=== PATIENT | male | born 1985 | race Caucasian/White ===

== ENCOUNTER → 2017-02-05 | Outpatient (CLI) | payer OTHER ==
[~2017-02-05] MED LIST: DIVA500T59 PO; FLUO10CA48 PO; FLUO20CA35 PO; OXYB5TAB74 PO
== END | disposition home or self-care (01) ==
LOC: C.LAB 02:08
DX: Z02.83 Encounter for blood-alcohol and blood-drug test (principal)

== ENCOUNTER → 2017-05-16 | Outpatient (CLI) | payer OTHER ==
[~2017-05-16] MED LIST changes: +ATR25 PO; +DPKSR500 PO; +DTR/5 PO; -OXYB5TAB74 PO; +QUET1TAB37 PO; +SRQ/100 PO
--- NOTE | 2017-05-16 09:17 | DIAGNOSTIC IMAGING REPORT ---
L HIP UNILATERAL 2 VIEWS CLINICAL HISTORY: 31 years-old Male presenting with M54.6 Thoracic back painM25.552 Left hip painM25.50 Polyarthralg. TECHNIQUE: Frontal and frog-leg lateral views of the left hip were obtained. COMPARISON: None. FINDINGS: Hip joint is congruent. No advanced degenerative change. Joint space preserved. No acute fracture or malalignment. No radiographic evidence of soft tissue abnormality. Visualized portion of the pelvis is normal. IMPRESSION: No acute osseous injury of the left hip. Electronically signed by: Lukas Williamson M.D. 05/16/2017 9:16 AM Dictated Date/Time: 05/16/2017 9:15 AM
--- NOTE | 2017-05-16 09:18 | DIAGNOSTIC IMAGING REPORT ---
THORACIC SPINE 3 VIEWS ROUTINE CLINICAL HISTORY: Thoracic back pain. Polyarthralgia. COMPARISON STUDY: No previous studies for comparison. FINDINGS: Alignment of the thoracic spine is anatomic. Vertebral body heights are maintained. There is no fracture or suspicious lesion. Disc spaces are preserved. IMPRESSION: Unremarkable thoracic spine radiographs. Electronically signed by: Gabriel Matos M.D. 05/16/2017 9:16 AM Dictated Date/Time: 05/16/2017 9:16 AM
--- NOTE | 2017-05-16 09:19 | DIAGNOSTIC IMAGING REPORT ---
SI JOINTS 3 OR MORE VIEWS HISTORY: 31 years-old Male M54.6 Thoracic back painM25.552 Left hip painM25.50 Polyarthralg acute back pain COMPARISON: Lumbar spine and SI joint radiographs 11/25/2014 TECHNIQUE: 3 views of the SI joints FINDINGS: Sacrum and imaged pelvis appears intact and unremarkable. Bilateral SI joints are within normal limits and demonstrate no fracture, significant degenerative changes or evidence of erosions. Transitional lumbosacral anatomy redemonstrated. IMPRESSION: 1. No acute bony abnormality or evidence of sacroiliitis. 2. Transitional lumbosacral anatomy redemonstrated. The above report was generated using voice recognition software. It may contain grammatical, syntax or spelling errors. Electronically signed by: Fabián Hamilton M.D. 05/16/2017 9:18 AM Dictated Date/Time: 05/16/2017 9:16 AM
[2017-05-16 09:56] LABS: TRANSFERRIN 223 mg/dl (200-360)
[2017-05-21 11:02] LABS: ANA SCREEN TC 249X NEGATIVE (NEGATIVE); ANTI-SS-A <1.0 NEG AI (<1.0 NEG); ANTI-SS-B <1.0 NEG AI (<1.0 NEG); COMPLEMENT C4** TC 44982E 24 MG/DL (16-47)
== END | disposition home or self-care (01) ==
LOC: C.RAD1850 08:36
PROVIDERS: ATTEND Internal Medicine Rheumatology
DX: M25.552 Pain in left hip (principal); M54.6 Pain in thoracic spine

== ENCOUNTER → 2017-05-21 | Outpatient (CLI) | payer OTHER ==
--- NOTE | 2017-05-21 14:36 | DIAGNOSTIC IMAGING REPORT ---
BONE SCAN WHOLE BODY CLINICAL HISTORY: 31 years-old Male presenting with M54.6 Thoracic back painM25.552 Left hip painM25.50 Polyarthralgia. TECHNIQUE: Planar anterior and posterior whole body imaging was performed 3 hours following the intravenous administration of radiotracer. Radiotracer: 26.3 mCi Tc-99m MDP. COMPARISON: Plain radiographs of the thoracic spine, sacroiliac joints, and left hip from 05/16/2017. FINDINGS: Expected excretion of radiotracer into the urinary bladder. Focal radiotracer activity in the region of the right maxilla. Several foci of mild activity associated with costochondral junctions possibly indicating costochondritis. No additional foci of radiotracer activity. Symmetric mild periarticular uptake at the bilateral shoulders. Symmetric and homogenous uptake at the sacroiliac joints. IMPRESSION: 1. Symmetric mild periarticular radiotracer uptake at the bilateral shoulders. If there is clinical concern, consider dedicated radiographs of the shoulders. 2. Focal greater tracer uptake at the right maxilla. This could be related to a tooth or bone lesion. CT of the face could be obtained if clinically indicated. 3. No other evidence of radiotracer uptake to suggest an inflammatory arthritis. Electronically signed by: Lukas Williamson M.D. 05/21/2017 2:34 PM Dictated Date/Time: 05/21/2017 2:30 PM
== END | disposition home or self-care (01) ==
LOC: C.NUCL 10:36
PROVIDERS: ATTEND Internal Medicine Rheumatology
DX: R93.7 Abnormal findings on diagnostic imaging of other parts of musculoskeletal system (principal); M25.552 Pain in left hip; M54.6 Pain in thoracic spine

== ENCOUNTER 2017-07-11 01:51 | Observation (INO) | payer OTHER ==
[~2017-07-11] VITALS: Ht 185.4 cm; Wt 73.6 kg
[~2017-07-11 01:51] MED LIST changes: -ATR25 PO; -DPKSR500 PO; -QUET1TAB37 PO; -SRQ/100 PO
[2017-07-11] MEDS ORDERED: SODIUM CHLORIDE 0.9% 1000ML 2,000 ML IV STA (02:18)
[2017-07-11 02:26] LABS: BASO % 0.2 %; BASO ABS # 0.01 K/uL (0-0.2); EOS % 1.2 %; EOS ABS # 0.05 K/uL (0-0.5); HEMATOCRIT 42.9 % (42-52); HEMOGLOBIN 15.1 g/dL (14.0-18.0); IG# 0.01 K/uL (0.00-0.02); LYMPH % 43.3 %; LYMPH ABS # 1.87 K/uL (1.2-3.4); MEAN CELL VOLUME 86.8 fL (80-100); MEAN CORPUSCULAR HEMOGLOBIN 30.6 pg (25-34); MEAN CORPUSCULAR HGB CONC 35.2 g/dl (32-36); MEAN PLATELET VOLUME 10.6 fL (7.4-10.4); MONO % 6.5 %; MONO ABS # 0.28 K/uL (0.11-0.59); NEUT % 48.6 %; PLATELET COUNT 188 K/uL (130-400); RED CELL DISTRIBUTION WIDTH CV 12.6 % (11.5-14.5); RED CELL DISTRIBUTION WIDTH SD 40.3 fL (36.4-46.3); WHITE BLOOD COUNT 4.32 K/uL (4.8-10.8)
[2017-07-11 02:35] LABS: ALBUMIN 3.9 gm/dl (3.4-5.0); ALT/SGPT 64 U/L (12-78); AST/SGOT 21 U/L (15-37); BLOOD UREA NITROGEN 18 mg/dl (7-18); CALCIUM 8.6 mg/dl (8.5-10.1); CARBON DIOXIDE 27 mmol/L (21-32); CREATININE 0.97 mg/dl (0.60-1.40); GLUCOSE 137 mg/dl (70-99); POTASSIUM 3.6 mmol/L (3.5-5.1); SODIUM 136 mmol/L (136-145)
[2017-07-11 02:40] LABS: ALKALINE PHOSPHATASE 64 U/L (45-117); CKMB < 0.5 ng/ml (0.5-3.6)
[2017-07-11] MEDS ORDERED: QUET1TAB37 PO (03:41)
--- NOTE | 2017-07-11 04:05 | EMERGENCY ROOM VISIT NOTE ---
History Report prepared by Shawanda: Hillary Jessica Under the Supervision of: Dr. Adrianna Bhatia M.D. First contact with patient: 01:59 Chief Complaint: SYNCOPE Stated Complaint: SYNCOPE History of Present Illness The patient is a 31 year old male who presents to the Emergency Room with complaints of an episode of syncope occurring prior to arrival. The patient states that he got out of bed to go to the bathroom and started feeling nauseous. He states that he could feel flushed. He states that he stumbled to the bathroom and urinated. He states that when he came out he passed out. He reports that his mother caught him and lowered him to the floor. He states that his mom told him he looked very pale. The patient states that if he stands the symptoms return and if he lies down he feels better. The patient complains of diarrhea. The patient denies hurting his neck or head, fluttering in his chest before falling, vomiting, ever having a gastric ulcer, and recent use of alcohol. The patient notes a history of bipolar disorder and IBS. Source of History: patient Onset: prior to arrival Position: other (global) Timing: other (episode) Modifying Factors (Worsening): other (standing up) Modifying Factors (Relieving): other (lying down) Associated Symptoms: + diarrhea, No headache, No neck pain, No vomiting Note: The patient denies feeling his heart flutter. Review of Systems See HPI for pertinent positives & negatives. A total of 10 systems reviewed and were otherwise negative. Past Medical & Surgical Medical Problems: (1) Bipolar disorder (2) IBS (irritable bowel syndrome) (3) Orthostasis Family History Patient reports no known family medical history. Social History Smoking Status: Never Smoker Alcohol Use: none Drug Use: marijuana Marital Status: single Housing Status: lives with family Occupation Status: unemployed Current/Historical Medications Scheduled Divalproex Sodium (Divalproex Sodium ER), 500 MG PO DAILY Scheduled PRN Hydroxyzine HCl (Hydroxyzine HCl), 50 MG PO HS PRN for insomnia Allergies Coded Allergies: Sulfa Antibiotics (Verified Allergy, Unknown, UNKNOWN, 07/11/17) Physical Exam Vital Signs Date Time Temp Pulse Resp B/P (MAP) Pulse Ox O2 Delivery O2 Flow Rate FiO2 07/11/17 05:06 113 07/11/17 05:00 102 18 94/62 95 Room Air 07/11/17 04:47 94 18 103/58 97 Room Air 115 94/68 143 86/60 07/11/17 04:00 77 18 105/62 97 Room Air 07/11/17 02:38 91 18 114/65 97 Room Air 07/11/17 02:07 79 18 104/56 99 Room Air 94 95/64 121 07/11/17 01:56 36.8 79 18 109/71 97 Room Air 07/11/17 01:55 82 Physical Exam Positive orthostatic vital signs. General: Somewhat ill-appearing, pale, in no significant distress. HEENT: No scleral icterus, PERRLA, neck supple. Atraumatic. Pale conjunctiva. DMM. Cardiovascular: Regular rate and rhythm, no extra sounds. Pulmonary: Clear to auscultation bilaterally, normal work of breathing. Abdomen: Soft, nontender, nondistended, positive bowel sounds. Rectal: Normal. Normal mucosa. Guaiac negative. Brown stool. Musculoskeletal: Atraumatic, no peripheral edema. Neurologic: Patient awake alert and oriented x 3, full strength in all 4 extremities. Cranial nerves 2 through 12 grossly intact. Skin: Warm, dry, no rash Medical Decision & Procedures ER Provider Diagnostic Interpretation: CHEST X-RAY: The results were interpreted by me. Negative for focal lung consolidation. No failure. Laboratory Results 07/11/17 02:00 Red Blood Count 4.94, Mean Corpuscular Volume 86.8, Mean Corpuscular Hemoglobin 30.6, Mean Corpuscular Hemoglobin Concent 35.2, Mean Platelet Volume 10.6, Neutrophils (%) (Auto) 48.6, Lymphocytes (%) (Auto) 43.3, Monocytes (%) (Auto) 6.5, Eosinophils (%) (Auto) 1.2, Basophils (%) (Auto) 0.2, Neutrophils # (Auto) 2.10, Lymphocytes # (Auto) 1.87, Monocytes # (Auto) 0.28, Eosinophils # (Auto) 0.05, Basophils # (Auto) 0.01 07/11/17 02:00 Test 07/11/17 02:00 07/11/17 02:39 White Blood Count 4.32 K/uL (4.8-10.8) Red Blood Count 4.94 M/uL (4.7-6.1) Hemoglobin 15.1 g/dL (14.0-18.0) Hematocrit 42.9 % (42-52) Mean Corpuscular Volume 86.8 fL (80-100) Mean Corpuscular Hemoglobin 30.6 pg (25-34) Mean Corpuscular Hemoglobin Concent 35.2 g/dl (32-36) Platelet Count 188 K/uL (130-400) Mean Platelet Volume 10.6 fL (7.4-10.4) Neutrophils (%) (Auto) 48.6 % Lymphocytes (%) (Auto) 43.3 % Monocytes (%) (Auto) 6.5 % Eosinophils (%) (Auto) 1.2 % Basophils (%) (Auto) 0.2 % Neutrophils # (Auto) 2.10 K/uL (1.4-6.5) Lymphocytes # (Auto) 1.87 K/uL (1.2-3.4) Monocytes # (Auto) 0.28 K/uL (0.11-0.59) Eosinophils # (Auto) 0.05 K/uL (0-0.5) Basophils # (Auto) 0.01 K/uL (0-0.2) RDW Standard Deviation 40.3 fL (36.4-46.3) RDW Coefficient of Variation 12.6 % (11.5-14.5) Immature Granulocyte % (Auto) 0.2 % Immature Granulocyte # (Auto) 0.01 K/uL (0.00-0.02) D-Dimer 300 ug/L FEU (0-500) Anion Gap 6.0 mmol/L (3-11) Est Creatinine Clear Calc Drug Dose 111.8 ml/min Estimated GFR () 118.4 Estimated GFR (Non- 102.2 BUN/Creatinine Ratio 18.9 (10-20) Calcium Level 8.6 mg/dl (8.5-10.1) Magnesium Level 2.1 mg/dl (1.8-2.4) Total Bilirubin 0.4 mg/dl (0.2-1) Direct Bilirubin 0.2 mg/dl (0-0.2) Aspartate Amino Transf (AST/SGOT) 21 U/L (15-37) Alanine Aminotransferase (ALT/SGPT) 64 U/L (12-78) Alkaline Phosphatase 64 U/L (45-117) Total Creatine Kinase 63 U/L (39-308) Creatine Kinase MB < 0.5 ng/ml (0.5-3.6) Creatine Kinase MB Ratio (0-3.0) Troponin I < 0.015 ng/ml (0-0.045) Total Protein 7.0 gm/dl (6.4-8.2) Albumin 3.9 gm/dl (3.4-5.0) Urine Color YELLOW Urine Appearance CLEAR (CLEAR) Urine pH 6.0 (4.5-7.5) Urine Specific [place] 1.020 (1.000-1.030) Urine Protein NEG (NEG) Urine Glucose (UA) NEG (NEG) Urine Ketones NEG (NEG) Urine Occult Blood NEG (NEG) Urine Nitrite NEG (NEG) Urine Bilirubin NEG (NEG) Urine Urobilinogen NEG (NEG) Urine Leukocyte Esterase NEG (NEG) Urine Opiates Screen NEG (NEG) Urine Methadone, Qualitative NEG (NEG) Urine Barbiturates NEG (NEG) Urine Phencyclidine (PCP) Level NEG (NEG) Ur Amphetamine/Methamphetamine NEG (NEG) MDMA (Ecstasy) Screen NEG (NEG) Urine Benzodiazepines Screen NEG (NEG) Urine Cocaine Metabolite NEG (NEG) Urine Marijuana (THC) NEG (NEG) Laboratory results per my review. Medications Administered Medications (Trade) Dose Ordered Sig/Yuliana Route Start Time Stop Time Status Last Admin Dose Admin Sodium Chloride 2,000 ml @ 999 mls/hr Q2H1M STAT IV 07/11/17 02:18 07/11/17 04:18 DC 07/11/17 02:24 999 MLS/HR ECG Per My Interpretation Indication: syncope Rate (beats per minute): 78 Rhythm: normal sinus Findings: RBBB (incomplete), no acute ischemic change, no ectopy, other (QT-c 458) Change: Patient's electrocardiogram interpreted by me. ED Course 0200: Past medical records reviewed. The patient was evaluated in room A2. A complete history and physical examination was performed. 0218: Ordered NSS 2000 ml @ 999 mls/hr IV. 0454: I reviewed the patient's case with Dr. Marin- [facility] [place] Hospitalist. He will evaluate the patient for further management. Medical Decision Differential diagnosis: Etiologies such as vasovagal event, infection, hypoglycemia, electrolyte abnormalities, cardiac sources, intracerebral event, toxicologic, neurologic, as well as others were entertained. This patient was evaluated and appeared to be in no significant distress. IV access was obtained and laboratory work was drawn. This patient was evaluated and appeared to be in no significant distress. IV access was obtained and laboratory work was drawn. Patient was positive for orthostatic hypotension. He was given 2 L of IV fluid. EKG reveals no significant abnormalities. D-dimer is normal. Troponin is normal. Orthostatics were repeated after the IV hydration. He remains positive although says he is less symptomatic. The etiology of the patient's hypotension is unclear although he has recently increased his Seroquel dose. Given the profound orthostasis, the patient will be evaluated by the hospitalist service for further management. Patient is aware of the plan and agrees. Medication Reconcilliation Current Medication List: was personally reviewed by me Blood Pressure Screening Orthostatic and will be further monitored by the hospitalist. Consults Time Called: 0450 Consulting Physician: Dr. Dorene BANG Hospitalist Returned Call: 0454 I reviewed the patient's case with Dr. Dorene BANG Hospitalist. He will evaluate the patient for further management. Impression Primary Impression: Orthostatic syncope Additional Impression: Medication adverse effect Scribe Attestation The scribe's documentation has been prepared under my direction and personally reviewed by me in its entirety. I confirm that the note above accurately reflects all work, treatment, procedures, and medical decision making performed by me. Departure Information Dispostion Being Evaluated By Hospitalist Prescriptions Hydroxyzine HCl (Hydroxyzine HCl) 25 Mg Tab 50 MG PO HS Y for insomnia for 14 Days, #20 TAB Prov: Danilo Bangura MD, PhD 07/13/17 Divalproex Sodium (Divalproex Sodium ER) 500 Mg Tabcr 500 MG PO DAILY for 30 Days Prov: Danilo Bangura MD, PhD 07/13/17 Referrals Bette Jo D.O. (PCP) Patient Instructions My [facility] Problem Qualifiers
--- NOTE | 2017-07-11 05:39 | History and Physical ---
History & Physical Date & Time of Service: Jul 11, 2017 at 05:18 Chief Complaint: Syncope Primary Care Physician: Bette Jo D.O. History of Present Illness Source: patient 31 y/o M Hx Bipolar disorder. The pt woke up to urinate this AM, became lightheaded and suffered a brief syncopal episode. He presented to the ER as he remained lightheaded and was unable to stand without becoming dizzy and pre- syncopal. He denies CP, palpitations, SOB or fevers. He does describe related nausea. While in the ER the pt received 2 L of IVF. Despite this, when attempting to sit up or stand, he remained clearly orthostatic with persistent symptoms. He notes that he take Seroquel for his Bipolar disorder and that the dose was increased from 100mg daily to 300mg daily. He was previously combining Seroquel with Fluoxetine but had DCd Fluoxetine several months earlier. On review of literature regarding Seroquel side effects, it appears that his symptoms are not unusual and can occur in the absence of toxicity. Regardless, the pt cannot currently stand up without becoming symptomatic and will be assigned to telemetry for additional workup. Past Medical/Surgical History Bipolar disorder - pt reports that prior to an increase in his Seroquel dose he was manic for a total of 67 months. Family History Patient reports no known family medical history. Biological father with history of Hep C, CAD, CHF Social History He does not drink, smoke or take any unprescribed drugs Smoking Status: Never Smoker Drug Use: marijuana Marital Status: single Housing status: lives with family Occupational Status: unemployed Immunizations History of Influenza Vaccine: No History of Tetanus Vaccine?: Yes Tetanus Immunization Date: Apr 09, 2006 History of Pneumococcal: No History of Hepatitis B Vaccine: No Multi-Drug Resistant Organisms History of MDRO: No Allergies Coded Allergies: Sulfa Antibiotics (Verified Allergy, Unknown, UNKNOWN, 07/11/17) Home Medications Scheduled Quetiapine Fumarate (Seroquel), 300 MG PO HS Review of Systems Constitutional: No fever, No chills, No sweats Eyes: No worsening of vision ENT: No hearing loss, No unusual epistaxis, No nasal symptoms Respiratory: No cough, No sputum, No wheezing Cardiovascular: + problem reported (tachycardia), No chest pain, No orthopnea, No PND Abdomen: + nausea, No pain, No vomiting Musculoskeletal: No joint pain Genitourinary - Male: No hematuria Neurologic: + problem reported (Syncope as above), No memory loss, No paralysis , No weakness Psychiatric: No depression symptoms Endocrine: No fatigue Hematologic / Lymphatic: No abnormal bleeding/bruising Integumentary: No rash Allergic / Immunologic: No environmental allergies Physical Exam Vital Signs Date Time Temp Pulse Resp B/P (MAP) Pulse Ox O2 Delivery O2 Flow Rate FiO2 07/11/17 05:06 113 07/11/17 04:47 94 18 103/58 97 Room Air 115 94/68 143 86/60 07/11/17 04:00 77 18 105/62 97 Room Air 07/11/17 02:38 91 18 114/65 97 Room Air 07/11/17 02:07 79 18 104/56 99 Room Air 94 95/64 121 07/11/17 01:56 36.8 79 18 109/71 97 Room Air 07/11/17 01:55 82 General Appearance: WD/WN Head: normocephalic Eyes: normal inspection ENT: normal ENT inspection, pharynx normal Neck: supple, no JVD Respiratory/Chest: chest non-tender, lungs clear, normal breath sounds Cardiovascular: no edema, no gallop, no JVD, no murmur, + tachycardia Abdomen/GI: normal bowel sounds, non tender, soft Back: normal inspection, no CVA tenderness Extremities/Musculoskelatal: normal inspection, no calf tenderness, normal capillary refill 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, no motor/sensory deficits, alert, oriented x 3 Skin: normal color Diagnostics Laboratory Results Results Past 24 Hours Test 07/11/17 02:00 07/11/17 02:39 Range/Units White Blood Count 4.32 4.8-10.8 K/uL Red Blood Count 4.94 4.7-6.1 M/uL Hemoglobin 15.1 14.0-18.0 g/dL Hematocrit 42.9 42-52 % Mean Corpuscular Volume 86.8 80-100 fL Mean Corpuscular Hemoglobin 30.6 25-34 pg Mean Corpuscular Hemoglobin Concent 35.2 32-36 g/dl Platelet Count 188 130-400 K/uL Mean Platelet Volume 10.6 7.4-10.4 fL Neutrophils (%) (Auto) 48.6 % Lymphocytes (%) (Auto) 43.3 % Monocytes (%) (Auto) 6.5 % Eosinophils (%) (Auto) 1.2 % Basophils (%) (Auto) 0.2 % Neutrophils # (Auto) 2.10 1.4-6.5 K/uL Lymphocytes # (Auto) 1.87 1.2-3.4 K/uL Monocytes # (Auto) 0.28 0.11-0.59 K/uL Eosinophils # (Auto) 0.05 0-0.5 K/uL Basophils # (Auto) 0.01 0-0.2 K/uL RDW Standard Deviation 40.3 36.4-46.3 fL RDW Coefficient of Variation 12.6 11.5-14.5 % Immature Granulocyte % (Auto) 0.2 % Immature Granulocyte # (Auto) 0.01 0.00-0.02 K/uL D-Dimer 300 0-500 ug/L FEU Sodium Level 136 136-145 mmol/L Potassium Level 3.6 3.5-5.1 mmol/L Chloride Level 103 98-107 mmol/L Carbon Dioxide Level 27 21-32 mmol/L Anion Gap 6.0 3-11 mmol/L Blood Urea Nitrogen 18 7-18 mg/dl Creatinine 0.97 0.60-1.40 mg/dl Est Creatinine Clear Calc Drug Dose 111.8 ml/min Estimated GFR () 118.4 Estimated GFR (Non- 102.2 BUN/Creatinine Ratio 18.9 10-20 Random Glucose 137 70-99 mg/dl Calcium Level 8.6 8.5-10.1 mg/dl Magnesium Level 2.1 1.8-2.4 mg/dl Total Bilirubin 0.4 0.2-1 mg/dl Direct Bilirubin 0.2 0-0.2 mg/dl Aspartate Amino Transf (AST/SGOT) 21 15-37 U/L Alanine Aminotransferase (ALT/SGPT) 64 12-78 U/L Alkaline Phosphatase 64 45-117 U/L Total Creatine Kinase 63 39-308 U/L Creatine Kinase MB < 0.5 0.5-3.6 ng/ml Creatine Kinase MB Ratio 0-3.0 Troponin I < 0.015 0-0.045 ng/ml Total Protein 7.0 6.4-8.2 gm/dl Albumin 3.9 3.4-5.0 gm/dl Urine Color YELLOW Urine Appearance CLEAR CLEAR Urine pH 6.0 4.5-7.5 Urine Specific [place] 1.020 1.000-1.030 Urine Protein NEG NEG Urine Glucose (UA) NEG NEG Urine Ketones NEG NEG Urine Occult Blood NEG NEG Urine Nitrite NEG NEG Urine Bilirubin NEG NEG Urine Urobilinogen NEG NEG Urine Leukocyte Esterase NEG NEG Urine Opiates Screen NEG NEG Urine Methadone, Qualitative NEG NEG Urine Barbiturates NEG NEG Urine Phencyclidine (PCP) Level NEG NEG Ur Amphetamine/Methamphetamine NEG NEG MDMA (Ecstasy) Screen NEG NEG Urine Benzodiazepines Screen NEG NEG Urine Cocaine Metabolite NEG NEG Urine Marijuana (THC) NEG NEG EKG Sinus tach Impression Assessment and Plan 31 y/o M Hx Bipolar disorder. The pt woke up to urinate this AM, became lightheaded and suffered a brief syncopal episode. He presented to the ER as he remained lightheaded and was unable to stand without becoming dizzy and pre- syncopal. He denies CP, palpitations, SOB or fevers. He does describe related nausea. While in the ER the pt received 2 L of IVF. Despite this, when attempting to sit up or stand, he remained clearly orthostatic with persistent symptoms. He notes that he take Seroquel for his Bipolar disorder and that the dose was increased from 100mg daily to 300mg daily. He was previously combining Seroquel with Fluoxetine but had DCd Fluoxetine several months earlier. On review of literature regarding Seroquel side effects, it appears that his symptoms are not unusual and can occur in the absence of toxicity. Regardless, the pt cannot currently stand up without becoming symptomatic and will be assigned to telemetry for additional workup. 1) Syncope - orthostasis - the most likely etiology is the increase in the pt's Seroquel dose. We have sent for a level, however, this is a send-out and may take a while. We will provide IVF and check his vitals including orthostatics Q6H. If his symptoms resolve, he can likely be DCd. An echo is pending as well. 2) Bipolar disease - Considering the severity of his disorder, the case should likely be referred to mental health if it is determined that Seroquel is the causative agent and a substitution or dose adjustment is required. Full code - we will avoid DVT prophylaxis due to fall/syncope risk - would not apply SCDs until afternoon as I am not sure if they would have an effect on determining orthostatic pressure Total time for this admit including review of labs, meds, imaging, EKG - discussion with pt, family and ER attending - 38 min Level of Care Telemetry Resuscitation Status FULL RESUSCITATION VTE Prophylaxis Given or contraindicated: Treatment not indicated
[2017-07-11] MEDS ORDERED: ALUMINUM/MAGNESIUM/SIMETH (MAALOX MAX) 30 ML UDC PO PRN (05:45)
[2017-07-11] MEDS ORDERED: POLYETHYLENE (MIRALAX) 17 GM PACK PO PRN (05:45)
[2017-07-11] MEDS ORDERED: MAGNESIUM HYDROXIDE SUSP 30 ML UDC PO PRN (05:45)
[2017-07-11] MEDS ORDERED: ACETAMINOPHEN 325 MG TAB PO PRN (05:45)
[2017-07-11] MEDS ORDERED: ONDANSETRON INJ 2 MG/ML 2 ML VIAL IV PRN (05:45)
[2017-07-11] MEDS ORDERED: IV FLUIDS COMPLETED PRN (06:30)
[2017-07-11 07:10] VITALS: BP 111/69; PULSE 83; TEMP 36.6; O2SAT 96; Ht 185.4 cm; Wt 73.6 kg
--- NOTE | 2017-07-11 07:13 | DIAGNOSTIC IMAGING REPORT ---
CHEST ONE VIEW PORTABLE CLINICAL HISTORY: 31 years-old Male presenting with syncope. TECHNIQUE: Portable upright AP view of the chest was obtained. COMPARISON: 04/01/2009. FINDINGS: Cardiomediastinal silhouette normal. Lungs and pleural spaces clear. Osseous structures normal. Upper abdomen normal. IMPRESSION: 1. No acute cardiopulmonary disease. Electronically signed by: Lukas Williamson M.D. 07/11/2017 7:12 AM Dictated Date/Time: 07/11/2017 7:12 AM
--- NOTE | 2017-07-11 07:51 | ECHOCARDIOGRAM REPORT ---
*NOTICE TO RECEIVING REPUBLICAN AGENCY This information is strictly Confidential and protected under [place] law. [place] law prohibits you from making any further disclosure of this information unless further disclosure is expressly permitted by the written consent of the person to whom it pertains or is authorized by law. A general authorization for the release of medical or other information is not sufficient for this purpose. Hospital accepts no responsibility if the information is made available to any other person, INCLUDING THE PATIENT. Interpretation Summary * Name: LIOR POWERS Study Date: 07/11/2017 06:26 AM BP: 94/62 mmHg * Patient Location: [facility] HR: 113 * : 1985 (M/d/yyyy) Gender: Male Height: 72 in * Age: 31 yrs Ethnicity: CA Weight: 160 lb * Ordering Physician: Roby Marin * Referring Physician: Self, Referred * Performed By: Jonathan Oliver RCS * * Reason For Study: Syncope * BSA: 1.9 m2 * -- Conclusions -- * Left ventricular systolic function is normal. * Normal diastolic function * Right ventricular systolic pressure is normal. * Normal study Procedure Details * A complete two-dimensional transthoracic echocardiogram was performed (2D, M-mode, Doppler and color flow Doppler). Left Ventricle * The left ventricle is normal in size. * There is normal left ventricular wall thickness. * Left ventricular systolic function is normal. * Normal diastolic function Right Ventricle * The right ventricle is normal in size and function. * The right ventricular systolic function is normal as assessed by tricuspid annular plane systolic excursion (TAPSE) (normal >1.5 cm). Atria * The left atrial size is normal. * Right atrial size is normal. Mitral Valve * The mitral valve anatomy is normal. * There is no mitral regurgitation noted. Tricuspid Valve * The tricuspid valve anatomy is normal. * There is trace tricuspid regurgitation. * Right ventricular systolic pressure is normal. Aortic Valve * The aortic valve is normal in structure and function. * The aortic valve is trileaflet. * No hemodynamically significant valvular aortic stenosis. * There is no significant aortic regurgitation. Great Vessels * The aortic root is normal size. Pericardium/Pleural * There is no pericardial effusion. Great Vessels * Normal inferior vena cava diameter and respiratory variation suggests normal central venous pressure. MMode 2D Measurements and Calculations IVSd 1.0 cm IVSs 1.2 cm LVIDd 4.9 cm LVIDs 3.2 cm LVPWd 0.94 cm LVPWs 1.4 cm IVS/LVPW 1.1 FS 35.0 % EDV(Teich) 110.6 ml ESV(Teich) 39.7 ml EF(Teich) 64.1 % EDV(cubed) 114.6 ml ESV(cubed) 31.5 ml EF(cubed) 72.5 % % IVS thick 16.2 % % LVPW thick 51.8 % LV mass(C)d 170.5 grams LV mass(C)dI 88.0 grams/m\S\2 LV mass(C)s 135.7 grams LV mass(C)sI 70.0 grams/m\S\2 SV(Teich) 70.8 ml SI(Teich) 36.6 ml/m\S\2 SV(cubed) 83.1 ml SI(cubed) 42.9 ml/m\S\2 Ao root diam 3.6 cm Ao root area 10.3 cm\S\2 ACS 2.1 cm LA dimension 3.2 cm asc Aorta Diam 2.8 cm LA/Ao 0.87 EDV(MOD-sp4) 97.0 ml ESV(MOD-sp4) 41.0 ml EF(MOD-sp4) 57.7 % EDV(MOD-sp2) 121.0 ml ESV(MOD-sp2) 53.0 ml EF(MOD-sp2) 56.2 % SV(MOD-sp4) 56.0 ml SI(MOD-sp4) 28.9 ml/m\S\2 SV(MOD-sp2) 68.0 ml SI(MOD-sp2) 35.1 ml/m\S\2 Doppler Measurements and Calculations MV E max davis 65.1 cm/sec MV A max davis 60.0 cm/sec MV E/A 1.1 MV P1/2t max davis 73.6 cm/sec MV P1/2t 74.4 msec MVA(P1/2t) 3.0 cm\S\2 MV dec slope 289.9 cm/sec\S\2 MV dec time 0.24 sec Ao V2 max 123.5 cm/sec Ao max PG 6.1 mmHg Ao max PG (full) 1.3 mmHg LV V1 max PG 4.8 mmHg LV V1 max 109.6 cm/sec PA V2 max 102.6 cm/sec PA max PG 4.2 mmHg TR max davis 198.5 cm/sec
[2017-07-11] MEDS: NSS + 20MEQ KCL 1000ML 1,000 ML IV SCH ×2 (08:18→15:11)
[2017-07-11] MEDS ORDERED: NURSING VERBAL MED ORDER ONE (10:15)
[2017-07-11 11:57] VITALS: BP 108/65; PULSE 78; TEMP 36.7; O2SAT 99
--- NOTE | 2017-07-11 12:26 | Progress Note ---
Subjective Date of Service: Jul 11, 2017. Subjective Pt evaluation today including: conversation w/ patient, physical exam, chart review, lab review, review of studies, review of inpatient medication list Doing well, no dizziness, no blurry vision, denies palpitation, chest pain or lower extremity swelling, denies any new syncope, Problem List Medical Problems: (1) Medication adverse effect Status: Acute (2) Orthostatic syncope Status: Acute Review of Systems Constitutional: No fever, No chills, No sweats, No weight loss, No weakness, No fatigue, No problem reported Eyes: No worsening of vision, No eye pain, No redness, No discharge, No diplopia ENT: No hearing loss, No unusual epistaxis, No nasal symptoms, No sore throat, No tinnitus, No dental problems, No trouble swallowing Respiratory: No cough, No sputum, No wheezing, No shortness of breath, No dyspnea on exertion, No dyspnea at rest, No hemoptysis Cardiac: No chest pain, No orthopnea, No PND, No edema, No claudication, No palpitations Abdomen: No pain, No nausea, No vomiting, No diarrhea, No constipation Musculoskeletal: No joint pain, No muscle pain, No swelling, No calf pain Male : No dysuria, No urinary frequency, No incontinence, No nocturia more than once/night, No slowing stream, No hematuria Neurologic: No memory loss, No paralysis, No weakness, No numbness/tingling, No vertigo, No balance problems Psychiatric: No depression symptoms, No anhedonism, No anxiety, No insomnia, No substance abuse Heme: No abnormal bleeding/bruising, No clotting problems, No swollen lymph nodes, No night sweats Endo: No fatigue, No excessive thirst, No excessive urination Skin: No rash, No itch, No new/changing skin lesions, No color change, No bleeding Objective Vital Signs Date Time Temp Pulse Resp B/P (MAP) Pulse Ox O2 Delivery O2 Flow Rate FiO2 07/11/17 11:57 36.7 78 18 108/65 (79) 99 Room Air 07/11/17 07:10 36.6 83 16 111/69 96 Room Air 07/11/17 06:00 98 18 105/60 98 Room Air 07/11/17 05:06 113 07/11/17 05:00 102 18 94/62 95 Room Air 07/11/17 04:47 94 18 103/58 97 Room Air 115 94/68 143 86/60 07/11/17 04:00 77 18 105/62 97 Room Air 07/11/17 02:38 91 18 114/65 97 Room Air 07/11/17 02:07 79 18 104/56 99 Room Air 94 95/64 121 07/11/17 01:56 36.8 79 18 109/71 97 Room Air 07/11/17 01:55 82 Physical Exam General Appearance: WD/WN, no apparent distress Eyes: normal inspection, PERRL, EOMI, sclerae normal ENT: normal ENT inspection, hearing grossly normal, pharynx normal Neck: supple, no adenopathy, thyroid normal, no JVD, no carotid bruits, trachea midline Respiratory/Chest: chest non-tender, normal breath sounds, no respiratory distress, no accessory muscle use, + decreased breath sounds Cardiovascular: regular rate, rhythm, no edema, no gallop, no JVD, no murmur Abdomen: normal bowel sounds, non tender, soft, no organomegaly, no pulsatile mass Extremities: normal range of motion, non-tender, normal inspection, no pedal edema, no calf tenderness, normal capillary refill, pelvis stable Neurologic/Psychiatric: lead systems developer II-XII nml as tested, no motor/sensory deficits, alert, normal mood/affect, oriented x 3 Skin: normal color, warm/dry, no rash Lymphatic: no adenopathy Laboratory Results Last 24 Hours Test 07/11/17 02:00 07/11/17 02:39 07/11/17 05:44 White Blood Count 4.32 K/uL Red Blood Count 4.94 M/uL Hemoglobin 15.1 g/dL Hematocrit 42.9 % Mean Corpuscular Volume 86.8 fL Mean Corpuscular Hemoglobin 30.6 pg Mean Corpuscular Hemoglobin Concent 35.2 g/dl Platelet Count 188 K/uL Mean Platelet Volume 10.6 fL Neutrophils (%) (Auto) 48.6 % Lymphocytes (%) (Auto) 43.3 % Monocytes (%) (Auto) 6.5 % Eosinophils (%) (Auto) 1.2 % Basophils (%) (Auto) 0.2 % Neutrophils # (Auto) 2.10 K/uL Lymphocytes # (Auto) 1.87 K/uL Monocytes # (Auto) 0.28 K/uL Eosinophils # (Auto) 0.05 K/uL Basophils # (Auto) 0.01 K/uL RDW Standard Deviation 40.3 fL RDW Coefficient of Variation 12.6 % Immature Granulocyte % (Auto) 0.2 % Immature Granulocyte # (Auto) 0.01 K/uL D-Dimer 300 ug/L FEU Sodium Level 136 mmol/L Potassium Level 3.6 mmol/L Chloride Level 103 mmol/L Carbon Dioxide Level 27 mmol/L Anion Gap 6.0 mmol/L Blood Urea Nitrogen 18 mg/dl Creatinine 0.97 mg/dl Est Creatinine Clear Calc Drug Dose 111.8 ml/min Estimated GFR () 118.4 Estimated GFR (Non- 102.2 BUN/Creatinine Ratio 18.9 Random Glucose 137 mg/dl Calcium Level 8.6 mg/dl Magnesium Level 2.1 mg/dl Total Bilirubin 0.4 mg/dl Direct Bilirubin 0.2 mg/dl Aspartate Amino Transf (AST/SGOT) 21 U/L Alanine Aminotransferase (ALT/SGPT) 64 U/L Alkaline Phosphatase 64 U/L Total Creatine Kinase 63 U/L Creatine Kinase MB < 0.5 ng/ml Creatine Kinase MB Ratio Troponin I < 0.015 ng/ml Total Protein 7.0 gm/dl Albumin 3.9 gm/dl Urine Color YELLOW Urine Appearance CLEAR Urine pH 6.0 Urine Specific [place] 1.020 Urine Protein NEG Urine Glucose (UA) NEG Urine Ketones NEG Urine Occult Blood NEG Urine Nitrite NEG Urine Bilirubin NEG Urine Urobilinogen NEG Urine Leukocyte Esterase NEG Urine Opiates Screen NEG Urine Methadone, Qualitative NEG Urine Barbiturates NEG Urine Phencyclidine (PCP) Level NEG Ur Amphetamine/Methamphetamine NEG MDMA (Ecstasy) Screen NEG Urine Benzodiazepines Screen NEG Urine Cocaine Metabolite NEG Urine Marijuana (THC) NEG Assessment and Plan 31 y/o M Hx Bipolar disorder admitted because of syncope episodes July 11, 2017 Patient was found has dizziness and nausea, was orthostatic positive in the emergency room while in the ER the pt received 2 L of IVF His medicine Seroquel for his Bipolar disorder and that the dose was increased from 100mg daily to 300mg daily by PCP 1 month ago. He also reported some diarrhea, not eating drinking well couple days ago, denied possible dehydration Syncope, with orthostatic hypotension, which could be etiology for the syncope, Hypotension episode associated with tachycardia, possible secondary to Seroquel , which dose have side effect include severe hypotension orthostasis, Seroquel level was sent, a possible start low-dose Seroquel at 100 mg, and the same time request psychiatry consultation, Echo was checked which was unremarkable Continue IV fluid, follow-up orthostatic blood pressure checking Discussed with patient about fall precaution Telemetry monitoring heart is normal sinus rhythm, no arrhythmia Bipolar disease, restart low-dose Seroquel, psychiatry consultation requested Continued [facility] stay due to: multiple IV medications needed Discharge planning: home
--- NOTE | 2017-07-11 13:54 | Psychiatric Consultation ---
Psychiatric Consultation Date of Service: Jul 11, 2017. ID: Patient reviewed with liaison nurse in the presence of Dr. Landaverde. 31-year- old male admitted to the medical floor following a syncopal episode. With review of patient's history, it is questioned if a recent increase in his dosage of Seroquel may be the cause for his orthostatic hypotension. Psychiatric consult requested to review for bipolar disorder and potential adjustment of Seroquel dosing. Pt's dose of Seroquel has been decreased to 100mg per patient's medical team. CC: "I was just stumbling around" HPI: Elieser Briscoe is a 31-year-old male seen on psychiatric consult service as it is believed a recent increase in his dose of Seroquel is the cause for his syncopal episode. Pt is evaluated with his mother and sister present, with patient's verbal permission. Pt states that he has been noticing mild symptoms of orthostasis for the past few weeks, but nothing to this extent. He reports getting up to use the restroom overnight, and "stumbling around the bathroom until I passed out in my mom's arms." His mother states that his dose of Seroquel was changed 1-2 months ago, and the patient was instructed to take 200mg for 1 week and then increase to 300mg. She believes this was in response to manic symptoms at the time of presentation. The patient does not recall these instructions, but the mother verifies that he followed the titration as recommended. Pt states his mood is currently "on the low side" and admits to Seroquel being his only psychiatric medication at this time. Past medications include: Prozac, Celexa, Depakote, He reports his last inpatient hospitalization was at [facility] in 2010. He denies SI/HI, A/V hallucinations, and other psychosis. ROS: Psych: denies symptoms other than stated above Constitutional: denied Cardiovascular: denied GI: denied Neurologic: denied Remainder of 10 body systems also reviewed and denied other than noted above. MSE: The patient presented as alert and cooperative. The patient was dressed in a hospital gown and well-groomed. Eye contact was good. No psychomotor restlessness or agitation was noted. Speech was normal in rate, rhythm, and volume. Affect was mood congruent. The patients mood appeared euthymic, though he states, "I'm on the low side". Thought processes were clear, coherent and goal directed without evidence of loose associations or flight of ideas. Thought content/perception was reality based without delusions. The patient denied suicidal and homicidal ideation. The patient denied hallucinations and did not appear to be responding to internal stimuli. Cognition was grossly intact with orientation to person, place and time. Fund of Knowledge/Intelligence were consistent with level of education. Insight and Judgement were fair. Imp: 31-year-old male patient with history of bipolar disorder, currently on Seroquel as monotherapy. Pt reports dose increase from 100mg to 300mg, with recommended 1 week titration at 200mg, which they believe he completed as instructed. It is possible that the patient's current presentation is a result of this dose change, especially if other etiologies have been excluded. It is unlikely to be beneficial to increase dosage at this time due to syncopal episode, and starting a new medication is not recommended given side effects from his current medication may have precipitated the event leading to his hospitalization. It is appropriate to have him remain on the 100mg dose, if tolerating well, until he can be seen by an outpatient provider. Will have psychiatric nurse liaison make referrals for outpatient psychiatrist to follow up on medications, allowing his body time to recovery from this event. This plan was discussed with the patient as well as his family members, who all verbalized understanding and agreement. At this time, the patient does not meet criteria for inpatient mental health treatment, and is appropriate to be managed on an outpatient basis. Plan: - Continue Seroquel 100mg qHS. - Referral to [facility] is in process, patient is familiar with providers there and is agreeable to referral. - Will continue to offer input as requested - Appreciate the opportunity to participate in the care of this patient. Dr. Landaverde has personally been involved in the review of the above case and development of recommendations.
[2017-07-11 16:51] VITALS: BP 121/77; PULSE 80; TEMP 37; O2SAT 98
[2017-07-11 19:29] VITALS: BP 111/74; PULSE 82; TEMP 36.8; O2SAT 97
[2017-07-11] MEDS: QUETIAPINE FUMARATE 100 MG TAB PO SCH (20:37)
[2017-07-11 23:40] VITALS: BP 128/76; PULSE 85; TEMP 36.3; O2SAT 98
[2017-07-12] VITALS (10 sets, daily range): BP systolic 99–137; BP diastolic 51–93; PULSE 66–103; TEMP 36.2–36.9; O2SAT 97–100
[2017-07-12] MEDS ORDERED: SRQ/100 PO (10:39)
--- NOTE | 2017-07-12 10:48 | Discharge Instructions ---
Discharge Instructions Date of Service Jul 12, 2017. Admission Reason for Admission: Bipolar Disorder, Orthostasis Discharge Discharge Diagnosis / Problem: syncope Discharge Goals Goal(s): Decrease discomfort, Improve function, Increase independence, Improve disease control, Improve nutritional status, Learn about illness, Diagnostic testing, Therapeutic intervention, Prevent Disease Progression, Specific goals Activity Recommendations Activity Limitations: as noted below Lifting Limitations: none Exercise/Sports Limitations: until after follow-up appointment . Instructions / Follow-Up Instructions / Follow-Up abimael was having syncope and orthostatic hypotension, which is resolved, possible from Seroquel , currently Seroquel is at 100m po daily, you can remain on the 100mg dose, please keep appoint with [facility], RX has sent to your pharmacy please see pcp in 1 week to follow up with syncope, and TSH level pay attention to dizziness, or syncope when you change positions, fall precaution, no driving or heavy machine operation before clearance by pcp - you need to follow up with your primary care physician in 1 week, - take medication as instructed, never overdose or any misuse, or take with alcohol, because misuse of medicine may cause organ damage or , call your primary care physician if have questions of medicaitons. - call your primary care physician OR go to local emergency room if has any fever/chill, chest pain, shortness of breathing, nausea/vomiting/abdominal pain , facial droop/slurry speech/local weakness, or if has any questions. - fall precaution - diet as instructed - you need to follow up with your subspecialist - you should understand that it is important to follow up the above instruction , and "not following the above instruction" may cause delayed or missed care of your medical conditions which may cause permanent organ damage and even . Current Hospital Diet Patient's current hospital diet: Regular Diet Discharge Diet Recommended Diet: Regular Diet Pending Studies Studies pending at discharge: yes List of pending studies: tsh Laboratory Results Meds Administered (Past 24Hrs) Medications (Trade) Dose Ordered Sig/Yuliana Route Start Time Stop Time Status Last Admin Dose Admin Sodium Chloride 2,000 ml @ 999 mls/hr Q2H1M STAT IV 07/11/17 02:18 07/11/17 04:18 DC 07/11/17 02:24 999 MLS/HR Potassium Chloride/Sodium Chloride 1,000 ml @ 150 mls/hr Q6H40M IV 07/11/17 08:00 07/11/17 21:19 DC 07/11/17 15:11 150 MLS/HR Quetiapine Fumarate (seroQUEL TAB) 100 mg HS PO 07/11/17 21:00 08/10/17 20:59 07/11/17 20:37 100 MG Medical Emergencies . Who to Call and When: Medical Emergencies: If at any time you feel your situation is an emergency, please call 911 immediately. . Non-Emergent Contact Non-Emergency issues call your: Primary Care Provider, Specialist (psych) . . "Provider Documentation" section prepared by Danilo Bangura. . VTE Core Measure Inpt VTE Proph given/why not?: Treatment not indicated
--- NOTE | 2017-07-12 10:57 | Discharge Summary ---
Discharge Summary Date of Service Jul 12, 2017. Discharge Summary Admission Date: Jul 11, 2017 at 05:42 Discharge Date: Jul 12, 2017 Discharge Disposition: Home Principal Diagnosis: syncope and orthostatic hypotension, Problems/Secondary Diagnoses: Bipolar Immunizations: Have You Had Influenza Vaccine: No History of Tetanus Vaccine?: Yes Tetanus Immunization Date: Apr 09, 2006 History of Pneumococcal: No History of Hepatitis B Vaccine: No Procedures: No Consultations: Psychiatrist Medication Reconciliation New Medications: Quetiapine Fumarate (Seroquel) 100 Mg Tab 100 MG PO HS for 30 Days, #30 TAB Discontinued Medications: Quetiapine Fumarate (Seroquel) 300 Mg Tab 300 MG PO HS, TAB Discharge Exam Doing well, up and walk, no dizziness no palpitations, denies chest pain, not have any other complaint Review of Systems: Constitutional: No fever, No chills, No sweats, No weight loss, No weakness , No fatigue, No problem reported Eyes: No worsening of vision, No eye pain, No redness, No discharge, No diplopia, No problem reported ENT: No hearing loss, No unusual epistaxis, No nasal symptoms, No sore throat, No tinnitus, No dental problems, No trouble swallowing, No problem reported Respiratory: No cough, No sputum, No wheezing, No shortness of breath, No dyspnea on exertion, No dyspnea at rest, No hemoptysis, No problem reported Cardiovascular: No chest pain, No orthopnea, No PND, No edema, No claudication, No palpitations, No problem reported Abdomen: No pain, No nausea, No vomiting, No diarrhea, No constipation, No GI bleeding, No problem reported Musculoskeletal: No joint pain, No muscle pain, No swelling, No calf pain, No problem reported Genitourinary - Male: No hematuria, No dysuria, No urinary frequency, No urinary urgency, No urinary hesitancy, No urinary retention, No urinary incontinence, No penile discharge, No lesions, No impotence, No problem reported Neurologic: No memory loss, No paralysis, No weakness, No numbness/tingling , No vertigo, No balance problems, No problem reported Psychiatric: No depression symptoms, No anhedonism, No anxiety, No insomnia , No substance abuse, No problem reported Endocrine: No fatigue, No excessive thirst, No excessive urination, No problem reported Hematologic / Lymphatic: No abnormal bleeding/bruising, No clotting problems , No swollen lymph nodes, No night sweats, No problem reported Integumentary: No rash, No itch, No new/changing skin lesions, No color change, No bleeding, No problem reported Physical Exam: General Appearance: WD/WN, no apparent distress Eyes: normal inspection, PERRL, EOMI ENT: normal ENT inspection, hearing grossly normal, TMs normal Neck: supple, no adenopathy, thyroid normal Respiratory/Chest: chest non-tender, lungs clear, normal breath sounds, no respiratory distress Cardiovascular: regular rate, rhythm, no edema, no gallop Abdomen / GI: normal bowel sounds, non tender, soft, no organomegaly, no pulsatile mass Extremities: normal inspection, no calf tenderness, normal capillary refill , no pedal edema Neurologic/Psychiatric: center rep II-XII nml as tested, no motor/sensory deficits , alert, normal mood/affect, normal reflexes, oriented x 3 Skin: normal color, warm/dry, no rash Hospital Course 31 y/o M Hx Bipolar disorder admitted because of syncope episodes July 11, 2017 Patient was found has dizziness and nausea, was orthostatic positive in the emergency room while in the ER the pt received 2 L of IVF His medicine Seroquel for his Bipolar disorder and that the dose was increased from 100mg daily to 300mg daily by PCP 1 month ago. He also reported some diarrhea, not eating drinking well couple days ago, denied possible dehydration Syncope, with orthostatic hypotension, which could be etiology for the syncope, Hypotension episode associated with tachycardia, possible secondary to Seroquel , which dose have side effect include severe hypotension orthostasis, Seroquel level was sent, a possible start low-dose Seroquel at 100 mg, and the same time request psychiatry consultation, Echo was checked which was unremarkable Has been on IV fluid, encourage oral fluid intake, follow-up orthostatic blood pressure checking, which has been negative, occasional heart rate up to 110 to 120 Discussed with patient about fall precaution, and slowly change positions Telemetry monitoring heart is normal sinus rhythm, no arrhythmia Bipolar disease, restart low-dose Seroquel, psychiatry consultation requested, will maintain the current dose, has follow-up appointment with outpatient psychiatrist, encourage patient to keep the appointment TSH was checked no final result yet, advised patient to follow-up with PCP for the syncope episodes and TSH results Patient discharged home in stable condition, answered all questions Instructions / Follow-Up you was having syncope and orthostatic hypotension, which is resolved, possible from Seroquel , currently Seroquel is at 100m po daily, you can remain on the 100mg dose, please keep appoint with [facility], RX has sent to your pharmacy please see pcp in 1 week to follow up with syncope, and TSH level pay attention to dizziness, or syncope when you change positions, fall precaution, no driving or heavy machine operation before clearance by pcp - you need to follow up with your primary care physician in 1 week, - take medication as instructed, never overdose or any misuse, or take with alcohol, because misuse of medicine may cause organ damage or , call your primary care physician if have questions of medicaitons. - call your primary care physician OR go to local emergency room if has any fever/chill, chest pain, shortness of breathing, nausea/vomiting/abdominal pain , facial droop/slurry speech/local weakness, or if has any questions. - fall precaution - diet as instructed - you need to follow up with your subspecialist - you should understand that it is important to follow up the above instruction , and "not following the above instruction" may cause delayed or missed care of your medical conditions which may cause permanent organ damage and even . Total Time Spent: Less than 30 minutes This includes examination of the patient, discharge planning, medication reconciliation, and communication with other providers. Discharge Instructions Please refer to the electronic Patient Visit Report (Discharge Instructions) for additional information. Additional Copies To Landon Issa MD; Bette Jo D.O.
--- NOTE | 2017-07-12 16:33 | Progress Note ---
Subjective Date of Service: Jul 12, 2017. Subjective Pt evaluation today including: conversation w/ patient, conversation w/ family , physical exam, chart review, lab review, review of studies, review of inpatient medication list Patient was feeling dizziness while up and walk, and there is one time checking of orthostatic blood pressure which was positive, therefore discharge was held, Problem List Medical Problems: (1) Medication adverse effect Status: Acute (2) Orthostatic syncope Status: Acute Review of Systems Constitutional: No fever, No chills, No sweats, No weight loss, No weakness, No fatigue, No problem reported Eyes: No worsening of vision, No eye pain, No redness, No discharge, No diplopia ENT: No hearing loss, No unusual epistaxis, No nasal symptoms, No sore throat, No tinnitus, No dental problems, No trouble swallowing Respiratory: No cough, No sputum, No wheezing, No shortness of breath, No dyspnea on exertion, No dyspnea at rest, No hemoptysis Cardiac: No chest pain, No orthopnea, No PND, No edema, No claudication, No palpitations Abdomen: No pain, No nausea, No vomiting, No diarrhea, No constipation Musculoskeletal: No joint pain, No muscle pain, No swelling, No calf pain Male : No dysuria, No urinary frequency, No incontinence, No nocturia more than once/night, No slowing stream, No hematuria Neurologic: No memory loss, No paralysis, No weakness, No numbness/tingling, No vertigo, No balance problems Psychiatric: No depression symptoms, No anhedonism, No anxiety, No insomnia, No substance abuse Heme: No abnormal bleeding/bruising, No clotting problems, No swollen lymph nodes, No night sweats Endo: No fatigue, No excessive thirst, No excessive urination Skin: No rash, No itch, No new/changing skin lesions, No color change, No bleeding Objective Vital Signs Date Time Temp Pulse Resp B/P (MAP) Pulse Ox O2 Delivery O2 Flow Rate FiO2 07/12/17 14:38 36.2 75 20 98 Room Air 07/12/17 12:17 75 20 121/77 (92) 98 Room Air 125/78 (94) 120/76 (91) 07/12/17 12:00 Room Air 07/12/17 11:20 36.2 66 20 114/69 (84) 99 Room Air 120/78 (92) 114/79 (91) 07/12/17 08:36 36.5 82 20 127/76 (93) 100 Room Air 123/76 (92) 120/69 (86) 07/12/17 08:00 Room Air 07/12/17 07:34 36.9 81 20 99/64 (76) 99 Room Air 07/12/17 04:00 Room Air 07/12/17 03:40 36.6 93 18 127/76 (93) 98 Room Air 95 135/87 (103) 103 118/85 (96) 07/12/17 00:00 Room Air 07/11/17 23:40 36.3 85 18 128/76 (93) 98 Room Air 07/11/17 20:00 Room Air 07/11/17 19:29 36.8 82 20 111/74 (86) 97 Room Air 07/11/17 16:51 37.0 80 18 121/77 (92) 98 Room Air Physical Exam General Appearance: WD/WN, no apparent distress, + thin Eyes: normal inspection, PERRL, EOMI, sclerae normal ENT: normal ENT inspection, hearing grossly normal, pharynx normal Neck: supple, no adenopathy, thyroid normal, no JVD, no carotid bruits, trachea midline Respiratory/Chest: chest non-tender, lungs clear, normal breath sounds, no respiratory distress, no accessory muscle use Cardiovascular: regular rate, rhythm, no edema, no gallop, no JVD, no murmur Abdomen: normal bowel sounds, non tender, soft, no organomegaly, no pulsatile mass Extremities: normal range of motion, non-tender, normal inspection, no pedal edema, no calf tenderness, normal capillary refill, pelvis stable Neurologic/Psychiatric: lav crewman II-XII nml as tested, no motor/sensory deficits, alert, normal mood/affect, oriented x 3 Skin: normal color, warm/dry, no rash Lymphatic: no adenopathy Laboratory Results Last 24 Hours Test 07/12/17 10:08 07/12/17 11:03 Thyroid Stimulating Hormone (TSH) 1.850 uIu/ml Bedside Glucose 89 mg/dl Assessment and Plan 31 y/o M Hx Bipolar disorder admitted because of syncope episodes July 11, 2017 Patient was found has dizziness and nausea, was orthostatic positive in the emergency room while in the ER the pt received 2 L of IVF His medicine Seroquel for his Bipolar disorder and that the dose was increased from 100mg daily to 300mg daily by PCP 1 month ago. He also reported some diarrhea, not eating drinking well couple days ago, denied possible dehydration Syncope, with orthostatic hypotension, which could be etiology for the syncope, Hypotension episode associated with tachycardia, possible secondary to Seroquel , which dose have side effect include severe hypotension orthostasis, Seroquel level was sent, a possible start low-dose Seroquel at 100 mg, and the same time request psychiatry consultation, Echo was checked which was unremarkable Has been on IV fluid, encourage oral fluid intake, follow-up orthostatic blood pressure checking, which has been negative, occasional heart rate up to 110 to 120 Discussed with patient about fall precaution, and slowly change positions Telemetry monitoring heart is normal sinus rhythm, no arrhythmia Bipolar disease, restart low-dose Seroquel, psychiatry consultation requested, will maintain the current dose, has follow-up appointment with outpatient psychiatrist, encourage patient to keep the appointment TSH was checked no final result yet, advised patient to follow-up with PCP for the syncope episodes and TSH results Patient discharged home in stable condition, answered all questions Was planning to discharge patient home this morning however patient was feeling dizziness while up and walk , and there is one time checking of orthostatic blood pressure which was positive at noon time, therefore discharge was held, compression stocking was started, encourage patient to get plenty fluid intake, stop Seroquel Continue security monitor, the medication he was taking in the past include: Prozac, Celexa, Depakote, we will not order any medicine for now, possible he home without any medication tomorrow if no more symptoms or orthostatic blood pressure is improved Continued [facility] stay due to: multiple IV medications needed Discharge planning: home
[2017-07-12] MEDS: QUETIAPINE FUMARATE 100 MG TAB PO SCH (20:18)
[2017-07-13 01:06] VITALS: BP_SYST 109; BP_SYST 113; BP_SYST 120; BP_DIAS 75; BP_DIAS 78; BP_DIAS 82; PULSE 99; TEMP 36.7; O2SAT 98
[2017-07-13 03:40] VITALS: BP_SYST 121; BP_SYST 123; BP_DIAS 73; BP_DIAS 78; BP_DIAS 86; PULSE 120; TEMP 36.8; O2SAT 100
[2017-07-13 07:25] VITALS: BP_SYST 101; BP_SYST 111; BP_SYST 117; BP_DIAS 69; BP_DIAS 73; BP_DIAS 78; PULSE 113; PULSE 66; PULSE 99; TEMP 36.8; O2SAT 98
--- NOTE | 2017-07-13 09:41 | Cardiology Consultation ---
Cardiology Consultation Date of Consultation: Jul 13, 2017. Requesting Physician: Dr. Bangura Reason for Consultation: Orthostasis, syncope Pt evaluation today including: conversation w/ patient, physical exam, lab review, review of studies, review of inpatient medication list History of Present Illness This is a very pleasant 31-year-old gentleman who has a history of bipolar disorder, he has been on an increased dose of Seroquel (300 mg) for several months and was having a manic phase recently. He was apparently awoken from a deep sleep by his sister, not sure exactly why, and when he tried to get up he had difficulty standing due to lightheadedness and a feeling of "sick". I am not sure exactly what he means by sick, he says it was not exactly nausea although nausea may have been part of it, in general he felt very poorly. He tried to go to the bathroom but was not able to do so because when he did stand up. Become presyncopal, ultimately he had a syncopal episode which I believe was brief. He apparently had a syncopal episode in his mother's arms. There have been no recent changes in his medications other than the Seroquel, he uses marijuana when he is in a manic phase and he had done that but denies use of any other street drugs. During his hospitalization he was observed to have significant hypotension shortly after admission (orthostatic signs done on arrival in the emergency room showed that his blood pressure dropped from 104/56 supine to 95/64 sitting , I do not see a standing blood pressure. His heart rate increased from 79 supine to 121 standing consistent with orthostatic hypotension. Another set of orthostatic signs was done several hours later, on this occasion his blood pressure dropped from 103/58 supine to 86/60 standing, his heart rate increased from 94 supine to 143 standing. This is all consistent with orthostatic hypotension. His Seroquel dose was reduced to 100 mg (although it is now on hold but he received it yesterday) daily and more recently orthostatic signs have been better. His blood pressures have not dropped appreciably between supine and standing, however heart rates have not been recorded. Past Medical/Surgical History (1) Bipolar disorder (2) IBS (irritable bowel syndrome) Family History Patient reports no known family medical history. Social History Smoking Status: Never Smoker History of Alcohol Use: No Review of Systems Constitutional: No fever, No weight loss, No weakness Respiratory: No cough, No sputum, No wheezing, No shortness of breath, No dyspnea on exertion, No dyspnea at rest, No hemoptysis Cardiac: + see HPI, + problem reported (Orthostatic symptoms and syncope), No chest pain, No orthopnea, No PND, No edema, No claudication, No palpitations Abdomen: No pain, No nausea, No vomiting, No diarrhea, No GI bleeding Male : No urinary frequency, No nocturia more than once/night, No slowing stream, No sexual dysfunction Neurologic: No paralysis, No weakness, No numbness/tingling, No balance problems Heme: No abnormal bleeding/bruising, No clotting problems Endo: No fatigue Skin: No problem reported All Other Systems: Reviewed and Negative Allergies Coded Allergies: Sulfa Antibiotics (Verified Allergy, Unknown, UNKNOWN, 07/11/17) Medications Current Inpatient Medications Medications (Trade) Dose Ordered Sig/Yuliana Route Start Time Stop Time Status Last Admin Dose Admin Acetaminophen (Tylenol Tab) 650 mg Q4H PRN PO 07/11/17 05:45 08/10/17 05:44 Al Hydrox/Mg Hydrox/Simethicone (Maalox Max Susp) 15 ml Q4H PRN PO 07/11/17 05:45 08/10/17 05:44 Magnesium Hydroxide (Milk Of Magnesia Susp) 30 ml Q12H PRN PO 07/11/17 05:45 08/10/17 05:44 Ondansetron HCl (Zofran Inj) 4 mg Q6H PRN IV 07/11/17 05:45 08/10/17 05:44 07/12/17 10:58 4 MG Polyethylene (Miralax Powder Packet) 17 gm DAILY PRN PO 07/11/17 05:45 08/10/17 05:44 Miscellaneous (Iv Fluids Completed) 1 ea PRN PRN N/A 07/11/17 06:30 07/11/18 06:29 Quetiapine Fumarate (seroQUEL TAB) 100 mg HS PO 07/11/17 21:00 08/10/17 20:59 Future Hold 07/12/17 20:18 100 MG Physical Exam Vital Signs Past 12 Hours Date Time Temp Pulse Resp B/P (MAP) Pulse Ox O2 Delivery O2 Flow Rate FiO2 07/13/17 08:00 Room Air 07/13/17 07:25 36.8 66 20 111/69 (83) 98 117/78 (91) 101/73 (82) 07/13/17 04:00 Room Air 07/13/17 03:40 36.8 120 17 121/73 (89) 100 Room Air 123/86 (98) 121/78 (92) 07/13/17 01:06 36.7 99 17 120/78 (92) 98 Room Air 109/82 (91) 113/75 (88) 07/12/17 23:59 Room Air Constitutional: General Apperance: heathly-appearing Level of Distress: NAD Psychiatric: Mental Status: active & alert Head: normocephalic Eyes: EOM: EOMI ENMT: normal ENT inspection, hearing grossly normal Neck: supple, no masses Lungs: Respiratory effort: no dyspnea, good air movement Auscultation: breath sounds normal, no wheezing Cardiovascular: Heart Auscultation: RRR, no murmurs, no rubs, no gallops Peripheral Pulses: Bruits: none appreciated Abdomen: Bowel Sounds: normal Inspection & Palpation: soft, no tenderness, guarding & rebound, no masses Musculoskeletal: normal strength (5/5 throughout) Extremities: no edema Neurologic: Cranial Nerves: grossly intact Sensation: grossly intact Data Laboratory Results: Last 24 Hours Test 07/12/17 10:08 07/12/17 11:03 Thyroid Stimulating Hormone (TSH) 1.850 uIu/ml Bedside Glucose 89 mg/dl Imaging: Echocardiogram shows normal left ventricular function, it is a normal study EKG: Sinus rhythm, normal ECG Telemetry reviewed: Sinus rhythm and sinus tachycardia Assessment & Plan 1. Syncope: His syncope occurred in conjunction with what sounds like clear orthostatic symptoms and that is by far the most likely cause. There is no evidence of arrhythmias on telemetry monitoring and his cardiac function is normal. Unless it recurs I would not pursue further evaluation at this time. 2. Orthostasis: He has clear orthostatic symptoms prior to admission and documentation of severe orthostasis shortly after admission on Seroquel 300 mg daily. Seroquel 100 mg daily he did not have orthostatic blood pressure changes , heart rates were not recorded. He could have pots on Seroquel (which is a variant of orthostasis) with a compensatory heart rate increase. As long as he feels well that is probably not a problem. If this becomes a problem we can change medications or we can consider a more formal test using a tilt test but I would not do that now. Thank you for allowing me to participate in his care.
[2017-07-13 10:58] VITALS: BP_SYST 111; BP_SYST 122; BP_DIAS 74; BP_DIAS 78; BP_DIAS 79; PULSE 76; PULSE 94; PULSE 97; TEMP 36.8; O2SAT 99
[2017-07-13] MEDS ORDERED: hydrOXYzine HCL 25 MG TAB PO PRN (13:15)
--- NOTE | 2017-07-13 13:19 | Psychiatric Consultation ---
Psychiatric Consultation Date of Service: Jul 13, 2017. called to see pt over hospital discharged delayed over orthostatic concerns ongoing and Seroquel being held/stopped with request to explore other medication options. Saw pt and mother available for collateral at pt request. Pt has had risperdal in past during 2010 psych admission but appears to have had bothersome akathisia from it. seroquel xr was tried in that admission as well. He was discharged on depakote er 1000mg (along with prozac). Pt and mother thinks he did decently with improved mood stability and lack of elsy while on depakote ER after that admission, pt self stopped the med after some degree of time (unknown length but perhaps years) with elsy coming back afterwards. mother indicated pt was not satisfied with how was doing at some point prior to stopping depakote er but unclear if depressed or not feeling that needed med or missing elsy or other concerns. pt thinks tolerated depakote er overall. Pt is concerned of possible insomnia with stopping/ holding seroquel since been at 100mg (and recently higher) for extended time. will add vistaril 50mg prn insomnia to help with adjustment off seroquel instead of tapering Seroquel since even low doses of seroquel could add to orthostatic related concerns. starting depakote er gently at 500mg hs only to help minimize any risk of s/e in first doses with pt aware that will be expected for dose to be raised in near future, likely as a an outpt if discharge occurs within the next day or two.
[2017-07-13] MEDS ORDERED: DIVALPROEX 500 MG EXTENDED RELEASE TAB PO SCH (14:00)
[2017-07-13] MEDS ORDERED: ATR25 PO (15:43)
[2017-07-13] MEDS ORDERED: DPKSR500 PO (15:43)
== END 2017-07-13 16:09 | disposition home or self-care (01) ==
LOC: EDBD 01:51 → C.EDA 01:52 → C.2T 05:42 → ENRESERV 05:54
PROVIDERS: ADMIT Internal Medicine; ATTEND Hospitalist
DX: I95.1 Orthostatic hypotension (principal); F31.9 Bipolar disorder, unspecified; Z98.890 Other specified postprocedural states; Z88.2 Allergy status to sulfonamides; F12.90 Cannabis use, unspecified, uncomplicated; Z82.49 Family history of ischemic heart disease and other diseases of the circulatory system